=== PATIENT | male | born 1960 | race Caucasian/White ===

== ENCOUNTER → 2024-05-12 | Outpatient (CLI) | payer OTHER, SELFPAY ==
[2024-05-12 08:40] LABS: Basophils % (Auto) 1 % (0-2.5); Eosinophils # (Auto) 0.4 Thou/mm3 (0.0-0.5); Eosinophils % (Auto) 5 % (0-10); Hematocrit 42.5 % (41.0-53.0); Hemoglobin 14.8 g/dL (13.5-16.0); Immature Granulocytes % (Auto) 0 % (0-0); Immature Granulocytes Auto 0.02 Thou/mm3 (0.00-0.00); Lymphocytes # (Auto) 1.9 Thou/mm3 (1.0-4.8); Lymphocytes % (Auto) 27 % (10-50); Mean Corpuscular HGB Conc 34.8 g/dl (31.0-37.0); Mean Corpuscular Hemoglobin 31.1 pg (25.0-35.0); Mean Corpuscular Volume 89 fL (80-100); Monocytes # (Auto) 0.5 Thou/mm3 (0.0-0.8); Monocytes % (Auto) 8 % (0-12); Neutrophils # (Auto) 4.2 Thou/mm3 (1.8-7.7); Neutrophils % (Auto) 60 % (37-80); Nucleated Red Blood Cell % 0 /100 WBC (0); Platelet Count 187 Thou/mm3 (140-440); RDW Standard Deviation 39.8 fL (35.1-43.9); Red Blood Count 4.76 Miln/mm3 (4.50-5.90); White Blood Count 7.1 Thou/mm3 (3.8-10.6)
[2024-05-12 08:45] LABS: Glucose Estimated Average 275 mg/dL (80-131); Hemoglobin A1C 11.2 % Hgb (4.8-6.0)
[2024-05-12 09:02] LABS: Alanine Aminotransferase 22 U/L (10-49); Albumin, Serum 4.2 gm/dL (3.4-4.8); Albumin/Globulin Ratio 1.9 (1.2-2.2); Alkaline Phosphatase 102 U/L (46-116); Anion Gap 9 (7-16); Aspartate Amino Transferase 12 U/L (0-34); BUN/Creatinine Ratio 11 Ratio (12-20); Bilirubin,Total 0.8 mg/dL (0.3-1.2); Blood Urea Nitrogen 11 mg/dL (9-23); Calcium 9.1 mg/dL (8.3-10.6); Calcium (Corrected) 9.1 mg/dL (8.5-10.1); Carbon Dioxide 29.4 mMol/L (20.0-31.0); Cardiac Risk Estimate 2.9 RATIO (4.0-6.7); Chloride 99 mMol/L (98-107); Cholesterol 168 mg/dL (132-200); Globulin 2.2 gm/dL (2.3-3.5); Glucose 279 mg/dL (74-106); HDL Cholesterol 58 mg/dL (40-60); LDL Cholesterol,Calculated 88 mg/dL (0-130); Osmolality,Calculated 283 (275-295); Potassium 4.1 mMol/L (3.4-5.1); Sodium 137 mMol/L (136-145); Thyroid Stimulating Hormone 2.92 uIU/mL (0.55-4.78); Total Protein 6.4 gm/dL (5.7-8.2); Triglycerides 109 mg/dL (30-150); eGFR > 60 See Note
== END | disposition home or self-care (01) ==
LOC: COPL 07:13
PROVIDERS: PCP Internal Medicine; Referring Provider Nurse Practitioner Family; Visit Provider Nurse Practitioner Family
DX: E11.9 Type 2 diabetes mellitus without complications (principal); E78.2 Mixed hyperlipidemia; Z76.89 Persons encountering health services in other specified circumstances; Z79.4 Long term (current) use of insulin; Z79.899 Other long term (current) drug therapy; Z86.718 Personal history of other venous thrombosis and embolism
CPT/HCPCS: 36415; 80053; 80061; 83036; 84443; 85025

== ENCOUNTER 2024-10-19 13:01 | Emergency (ER) | payer OTHER, SELFPAY ==
[2024-10-19 13:01] VITALS: BMI 29.2
[2024-10-19 13:13] VITALS: BP 120/89; PULSE 89; RESP 18; TEMP 36.9; O2SAT 99
--- NOTE | 2024-10-19 13:17 | XR_ITS ---
Examination: CT brain head without contrast. 2-D sagittal coronal reconstructions Date and time of exam:October 19, 2024 1331 hours INDICATIONS: Onset generalized head pain and weakness today. CTDI: vol (mGy):59.6 DLP: (mGycm):1270 Technique: Multiple CT axial sections of the brain have been obtained, 5 mm slice thickness. Contrast has not been administered. 2-D sagittal, coronal reconstructions have been obtained Low dose protocols were performed. One or more of the following dose reduction techniques were used; automated exposure control, adjustment of the mA and/or KV according to patient size, use of iterative reconstruction technique. Findings: No significant ventricular enlargement. Intra-axial or extra-axial hemorrhage density is not seen. No mass effect or midline shift Basal cisterns are not remarkable. Fourth ventricle is midline. Cranial vault intact. Significant chronic ethmoid sinusitis Impression: Negative for acute hemorrhage, mass effect or midline shift
--- NOTE | 2024-10-19 13:17 | EKG_ITS ---
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
--- NOTE | 2024-10-19 13:17 | XR_ITS ---
Examination: PA lateral chest 2 views TECHNIQUE: Upright PA and lateral chest 2 views Date and time: October 19, 2024, 1346 hours. INDICATIONS: Chest pain today. FINDINGS: Normal heart size. Lungs are clear. The osseous structures are intact. IMPRESSION: No active disease.
--- NOTE | 2024-10-19 13:18 | PD.EDRME ---
Rapid Medical Screening Exam E Arrival date/time: 10/19/24 13:01 64-year-old male with a history of type 2 diabetes, DVT on Eliquis, presents to the emergency room with a chief complaint of chest tightness as well as upper back pain, the patient is also complaining of a 10 out of 10 headache. I have greeted and performed a focused initial assessment of this patient. A comprehensive ED assessment and evaluation of the patient, analysis of all test results, and completion of the medical decision making process will be conducted by additional ED providers. Chief Complaint: General Adult/Misc Complain Vital signs: Vital Signs Temperature 98.5 F 10/19/24 13:13 Pulse Rate 89 10/19/24 13:13 Respiratory Rate 18 10/19/24 13:13 Blood Pressure 120/89 H 10/19/24 13:13 Pulse Oximetry (%) 99 10/19/24 13:13 Oxygen Delivery Method Room Air 10/19/24 13:13 Vital signs reviewed by provider: Yes
[2024-10-19 15:09] LABS: Collection Type, Urine Clean Catch
[2024-10-19 15:19] LABS: Basophils # (Auto) 0.0 Thou/mm3 (0.0-0.2); Basophils % (Auto) 0 % (0-2.5); Eosinophils # (Auto) 0.1 Thou/mm3 (0.0-0.5); Eosinophils % (Auto) 1 % (0-10); Hematocrit 48.4 % (41.0-53.0); Hemoglobin 16.8 g/dL (13.5-16.0); Immature Granulocytes Auto 0.04 Thou/mm3 (0.00-0.00); Lymphocytes # (Auto) 1.8 Thou/mm3 (1.0-4.8); Lymphocytes % (Auto) 16 % (10-50); Mean Corpuscular HGB Conc 34.7 g/dl (31.0-37.0); Mean Corpuscular Hemoglobin 31.2 pg (25.0-35.0); Mean Corpuscular Volume 90 fL (80-100); Monocytes # (Auto) 0.9 Thou/mm3 (0.0-0.8); Monocytes % (Auto) 8 % (0-12); Neutrophils # (Auto) 8.3 Thou/mm3 (1.8-7.7); Neutrophils % (Auto) 74 % (37-80); Nucleated Red Blood Cell # 0.00 Thou/mm3 (0.00-0.00); Nucleated Red Blood Cell % 0 /100 WBC (0); Platelet Count 193 Thou/mm3 (140-440); RDW Standard Deviation 40.8 fL (35.1-43.9); Red Blood Count 5.39 Miln/mm3 (4.50-5.90); White Blood Count 11.2 Thou/mm3 (3.8-10.6)
[2024-10-19 15:26] LABS: INR 1.0 (0.9-1.3); Partial Thromboplastin Time 25.3 Seconds (22.0-36.0); Prothrombin Time 10.9 Seconds (9.0-12.2)
[2024-10-19 15:27] LABS: Bilirubin,Urine Negative (Negative); Blood,Urine Negative (Negative); Clarity,Urine Clear (Clear/Hazy); Color,Urine Lt-Yellow (Lt Yel-Yel); Culture Indicated,Urine Not Indicated; Glucose, Urine 4+ (Negative); Ketones,Urine 1+ (Negative); Leukocyte Esterase,Urine Negative (Negative); Nitrite,Urine Negative (Negative); PH,Urine 5.5 (5.0-7.0); Protein,Urine Negative (Neg - Trace); RBC,Urine 1 /hpf (0-3); Specific Gravity,Urine 1.044 (1.001-1.035); Squamous Epithelial Cell,Urine < 1 /hpf (0-5); Urobilinogen,Urine Negative mg/dL (0.0-1.0); WBC,Urine < 1 /hpf (0-5)
[2024-10-19 15:28] LABS: B-Type Natriuretic Peptide < 20 pg/mL (0-100)
[2024-10-19 15:29] LABS: Amphetamine/Methamp Scrn,U Negative (Negative); Barbiturate Screen,Urine Negative (Negative); Benzodiazepines Screen,Urine Negative (Negative); Benzoylecgonine Screen, Ur Negative (Negative); Fentanyl Screen,Urine Negative (Negative); Opiate Screen,Urine Negative (Negative); THC Screen,Urine Negative (Negative)
[2024-10-19 15:31] LABS: Alanine Aminotransferase 12 U/L (10-49); Albumin, Serum 4.7 gm/dL (3.4-4.8); Albumin/Globulin Ratio 1.7 (1.2-2.2); Alkaline Phosphatase 103 U/L (46-116); Anion Gap 11 (7-16); Aspartate Amino Transferase < 10 U/L (0-34); BUN/Creatinine Ratio 12 Ratio (12-20); Bilirubin,Total 0.6 mg/dL (0.3-1.2); Blood Urea Nitrogen 17 mg/dL (9-23); Calcium 10.6 mg/dL (8.3-10.6); Calcium (Corrected) 10.6 mg/dL (8.5-10.1); Carbon Dioxide 25.7 mMol/L (20.0-31.0); Chloride 99 mMol/L (98-107); Creatinine (Component) 1.4 mg/dL (0.6-1.3); Estimated Creatinine Clearance 71.1 mL/min (>60); Globulin 2.7 gm/dL (2.3-3.5); Glucose 217 mg/dL (74-106); Magnesium 2.1 mg/dL (1.6-2.6); Osmolality,Calculated 280 (275-295); Potassium 4.3 mMol/L (3.4-5.1); Sodium 136 mMol/L (136-145); Total Protein 7.4 gm/dL (5.7-8.2); Troponin I < 0.020 ng/mL (0.0-0.045); eGFR 56 See Note
--- NOTE | 2024-10-19 16:36 | EDNOTE_ITS ---
ED Headache RME/HPI General Chief Complaint: General Adult/Misc Complain Stated Complaint: GENERALIZED PAIN/DISCOMFORT, HEAD PRESSURE Arrival date/time: 10/19/24 13:01 Limitations: no limitations RME / HPI RME / HPI Narrative: 10/19/24 13:01 64-year-old male with a history of type 2 diabetes, DVT on Eliquis, presents to the emergency room with a chief complaint of chest tightness as well as upper back pain, the patient is also complaining of a 10 out of 10 headache. I have greeted and performed a focused initial assessment of this patient. A comprehensive ED assessment and evaluation of the patient, analysis of all test results, and completion of the medical decision making process will be conducted by additional ED providers. DR. JC WILLIAMSON ED EVALUATION 64 year old male with history of hypertension, diabetes, hyperlipidemia presents to the ED for evaluation of a diffuse headache beginning 2 days ago. Described headache as a dull ache he rates as moderate to severe that is not improved with taking Tylenol, DayQuil, or Gabapentin at home. Patient also complains of dizziness, upper back pain, and pain to bilateral lower extremities (from knees down), and an itching sensation to both armpits without visible rash or redness. Additionally reports feeling shaky that began yesterday. Denies fevers, chest pain, sore throat, nasal congestion, cough, shortness of breath, abdominal pain, n/v/d, or urinary symptoms. Denies any falls or injuries. Related Data Previous Rx's ?Medication ?Instructions ?Recorded peg 3350-electrolytes 236 240 ml PO Q10M PRN constipat ion 11/04/24 gram-22.74 gram-6.74 gram-5.86 #4,000 mL gram solution (GaviLyte-G) Allergies Allergy/AdvReac Type Severity Reaction Status Date / Time Penicillins Allergy Intermediate Rash Verified 11/04/24 13:21 Review of Systems Review of Systems Systems Reviewed: All systems reviewed, normal except as documented Past Medical History Social History SMOKING STATUS: Never smoker ED Exam General Limitations: Present no limitations General appearance: Present alert and in no apparent distress Head Head exam: Present atraumatic, normocephalic and normal inspection Eye Eye exam: Present normal appearance, PERRL and EOMI ENT ENT exam: Present normal exam, normal oropharynx and mucous membranes moist Neck Neck exam: Present normal inspection, full ROM and trachea midline Chest Chest inspection: Present normal inspection and symmetric chest wall rise Respiratory Respiratory exam: Present normal lung sounds bilaterally Cardiovascular Cardiovascular exam: Present regular rate, normal rhythm and normal heart sounds Abdominal Exam Abdominal exam: Present soft; Absent distention, tenderness, guarding, rebound or rigidity Extremities Exam Extremities exam: Present normal inspection and full ROM Back Exam Back exam: Present normal inspection and full ROM Neurological Exam Neurological exam: Present alert, oriented X3, CN II-XII intact and other (Patient able to walk, no focal neurological deficits ) Psychiatric Psychiatric exam: Present normal affect and normal mood Skin Skin exam: Present warm, dry, intact and normal color Course Quality Measures none Orders Category Date Time Status Bedside COVID-19 Antigen Test NOW Care 10/19/24 16:53 Completed Bedside Influenza A&B Antigen Test NOW Care 10/19/24 16:53 Completed EKG (ED ONLY) *Do not use* NOW Care 10/19/24 13:[address] head/brain wo con Stat Exams 10/19/24 13:17 Completed EKG (ED Only) Stat Exams 10/19/24 13:17 Draft XR chest 2V Stat Exams 10/19/24 13:17 Completed B-Type Natriuretic Peptide Stat Lab 10/19/24 14:55 Completed CBC Stat Lab 10/19/24 14:55 Completed Comprehensive Metabolic Panel Stat Lab 10/19/24 14:55 Completed Creatine Kinase Stat Lab 10/19/24 14:55 Completed Drug Screen,Urine Stat Lab 10/19/24 14:45 Completed Magnesium Stat Lab 10/19/24 14:55 Completed Partial Thromboplastin Time Stat Lab 10/19/24 14:55 Completed Prothrombin Time with INR Stat Lab 10/19/24 14:55 Completed Troponin I Stat Lab 10/19/24 14:55 Completed Urinalysis, C/S if Indicated Stat Lab 10/19/24 14:45 Completed DiphenhydrAMINE [Benadryl] Med 10/19/24 16:49 Discontinued 25 mg PO X1 ONE Ketorolac Inj [Toradol Inj] Med 10/19/24 16:49 Discontinued 15 mg IM X1 ONE Ketorolac Inj [Toradol Inj] Med 10/19/24 16:52 Discontinued 15 mg IM X1 ONE Metoclopramide [Reglan] Med 10/19/24 16:49 Discontinued 5 mg PO X1 ONE Ringers Lactated 1000 ml [Lactated Ringers] 1,000 ml Med 10/19/24 16:49 Discontinued IV 999 mls/hr Vital Signs Vital signs: Vital Signs Temperature 98.5 F 10/19/24 13:13 Pulse Rate 89 10/19/24 13:13 Respiratory Rate 18 10/19/24 13:13 Blood Pressure 120/89 H 10/19/24 13:13 Pulse Oximetry (%) 99 10/19/24 13:13 Oxygen Delivery Method Room Air 10/19/24 13:13 Pulse ox is 99% on room air which is adequate. Headache MDM Narrative MDM Narrative:: Labs with evidence that hemoglobin 16.8, no significant electrolyte abnormality creatinine 1.4, previously normal., no transaminitis, troponin not elevated, BNP normal, urinalysis with 4+ glucose, ketones negative leuk esterase, negative nitrates, no squames no bacteria less likely infected drug screen negative. Head CT and CXR w/o acute abnormalities. Exam w/o any FNDs, no rashes appreciated on exam less likely meningitis, encephalitis deep space occying infection. No rashes or LAD on exam. Patient w/o signs of SJS, TEN, or necrotizing skin infection. Patient does have DM, may be experiencing worsening neuropathy. Patient w/o weakness or ascending symptoms less likely GBS. Patient data External records reviewed:: None (No previous ED Visits for review ) Clinical information provided by:: patient Social determinants that could affect healthcare access:: none Patient has the following chronic illnesses:: HTN, DM, HLD How is presenting disease/condition affected by chronic disease/condition?: exacerbated by Evaluation data The following diagnostics were reviewed and interpreted by me:: lab results, radiology exam(s) and EKG tracing(s) Lab and/or radiology exams considered but not ordered:: None Interpretation Summary: Ordering Physician: Franky King Date of Service: 10/19/24 Procedure(s): XR chest 2V Accession Number(s): [id number] cc: Franky King; Immanuel Perry MD~ Examination: PA lateral chest 2 views TECHNIQUE: Upright PA and lateral chest 2 views Date and time: October 19, 2024, 1346 hours. INDICATIONS: Chest pain today. FINDINGS: Normal heart size. Lungs are clear. The osseous structures are intact. IMPRESSION: No active disease. Dictated By: Immanuel Perry MD Signed By: <Electronically signed by Immanuel Perry MD in OV> 10/19/24 1428 Ordering Physician: Franky King Date of Service: 10/19/24 Procedure(s): CT head/brain wo con Accession Number(s): [id number] cc: Franky King; Immanuel Perry MD~ Examination: CT brain head without contrast. 2-D sagittal coronal reconstructions Date and time of exam:October 19, 2024 1331 hours INDICATIONS: Onset generalized head pain and weakness today. CTDI: vol (mGy):59.6 DLP: (mGycm):1270 Technique: Multiple CT axial sections of the brain have been obtained, 5 mm slice thickness. Contrast has not been administered. 2-D sagittal, coronal reconstructions have been obtained Low dose protocols were performed. One or more of the following dose reduction techniques were used; automated exposure control, adjustment of the mA and/or KV according to patient size, use of iterative reconstruction technique. Findings: No significant ventricular enlargement. Intra-axial or extra-axial hemorrhage density is not seen. No mass effect or midline shift Basal cisterns are not remarkable. Fourth ventricle is midline. Cranial vault intact. Significant chronic ethmoid sinusitis Impression: Negative for acute hemorrhage, mass effect or midline shift Dictated By: Immanuel Perry MD Signed By: <Electronically signed by Immanuel Perry MD in OV> 10/19/24 1352 Medications / Prescriptions Medications or Prescriptions considered but not ordered:: None Medication administrations:: Medication Administration History Discontinued Medications Diphenhydramine HCl (Diphenhydramine 25 Mg Capsule) 25 mg PO X1 ONE Stop: 10/19/24 16:50 Last Admin: 10/19/24 17:00 Dose: 25 mg Documented By: DAYLIN Lactated Ringer's (Lactated Ringers) 1,000 mls @ 999 mls/hr IV .Q1H1M ONE Stop: 10/19/24 17:49 Last Infusion: 10/19/24 18:34 Dose: Infused Documented By: Admin: 10/19/24 17:54 Dose: 999 mls/hr Documented By: DAYLIN Ketorolac Tromethamine (Ketorolac Inj 60 Mg/2 Ml Vial) 15 mg IM X1 ONE Stop: 10/19/24 16:50 Last Admin: 10/19/24 17:55 Dose: Not Given Documented By: DAYLIN Non-Admin Reason: Duplicate Medication on eMAR Ketorolac Tromethamine (Ketorolac Inj 60 Mg/2 Ml Vial) 15 mg IM X1 ONE Stop: 10/19/24 16:53 Last Admin: 10/19/24 16:58 Dose: 15 mg Documented By: DAYLIN Metoclopramide HCl (Metoclopramide 5 Mg Tablet) 5 mg PO X1 ONE Stop: 10/19/24 16:50 Last Admin: 10/19/24 17:00 Dose: 5 mg Documented By: DAYLIN See above Consultations Consultation(s) initiated? (list below): No Diagnosis Differential diagnosis headache: migraine, subarachnoid hemorrhage, headache and other (dehydration, viral illness ) Most likely diagnosis given after review of the tests above:: Headache Admission Indicated Admission indicated?: not indicated Admission Request Was there a request for admission?: No Disposition Plan Disposition Plan: Discharge Discharge Attestation Discharge Attestation: The patient and all family members were given an opportunity to ask questions and understood the discharge instructions. Discharge instructions specifically effects, indications for sooner follow up or return to the emergency department, and the expected course of current diagnosis. Patient condition: Stable Discharge Plan Plan Patient Disposition: HOME (Self Care) Prescriptions/Referrals Prescriptions/Med Rec: No Action peg 3350-electrolytes [GaviLyte-G] 236-22.74-6.74 -5.86 gram recon soln 240 ml PO Q10M PRN (Reason: constipation) Qty: 4000 0RF Rx Instructions: until fecal effluent is clear Referrals: Sara Mckeon MD [Primary Care Provider] - In 1 week Problem List Clinical Impression: Headache Patient/Caregiver Discharge Instructions Additional Instructions: Although your workup today was reassuring I highly recommend that you follow-up with a neurologist to further discuss your headaches. If you have recurrence of symptoms or any other symptom of concern please return to the Emergency Department. Print Language: Armenian Stand Alone Forms: Katie Award Info., Patient Portal Info Letter
[2024-10-19] MEDS: KETOROLAC INJ 60 MG/2 ML VIAL 15 MG IM (16:58)
[2024-10-19] MEDS: METOCLOPRAMIDE 5 MG TABLET PO (17:00)
[2024-10-19 17:18] LABS: Creatine Kinase 84 U/L (34-171)
[2024-10-19] MEDS: RINGERS LACTATED 1000 ML 1,000 ML 999 ML IV (17:54)
== END 2024-10-19 18:45 | disposition home or self-care (01) ==
PROVIDERS: Nurse Practitioner Family; Emergency Provider Emergency Medicine; PCP Internal Medicine
DX: R51.9 Headache, unspecified (principal); R07.89 Other chest pain; E11.9 Type 2 diabetes mellitus without complications; M54.6 Pain in thoracic spine; E78.5 Hyperlipidemia, unspecified; I10 Essential (primary) hypertension
CPT/HCPCS: 36415; 70450; 71046; 80053; 80307; 81001; 82550; 83735; 83880; 84484; 85025; 85610; 85730; 87400; 87811; 93005; 96360; 96372; 99284; J1885; J7120; A9270

== ENCOUNTER 2024-11-04 13:18 | Emergency (ER) | payer OTHER, SELFPAY ==
[2024-11-04 13:29] VITALS: BP 127/80; PULSE 104; RESP 18; TEMP 36.9; O2SAT 98
--- NOTE | 2024-11-04 13:34 | EDNOTE_ITS ---
ED General RME/HPI General Chief complaint: General Adult/Misc Complain Stated complaint: UNABLE TO EMPTY BLADDER Time Seen by Provider: 11/04/24 13:33 Arrival date/time: 11/04/24 13:18 RME / HPI RME / HPI narrative: 64-year-old male patient with significant history of prostate problem in the past, came in for evaluation regarding acute urinary retention. Patient last good urination was last night. Now complaining of bladder discomfort, and distention. Also complained of constipation. Denies any dysuria or frequency. Last bowel movement yesterday. No vomiting no fever no other complaints noted Related Data Previous Rx's ?Medication ?Instructions ?Recorded peg 3350-electrolytes 236 240 ml PO Q10M PRN constipat ion 11/04/24 gram-22.74 gram-6.74 gram-5.86 #4,000 mL gram solution (GaviLyte-G) Allergies Allergy/AdvReac Type Severity Reaction Status Date / Time Penicillins Allergy Intermediate Rash Verified 11/04/24 13:21 Review of Systems Review of Systems Narrative Review of Systems: Review of system reviewed and within normal limits except mentioned in HPI ED Exam Narrative Physical exam: VITAL SIGNS: Reviewed. GENERAL APPEARANCE: Alert and interactive, follows commands, no acute distress, HEAD AND FACE: Non-traumatic. ENT: PERRL, pink conjunctivitis, eyelid no trauma, Mucous membrane moist. NECK: Supple, nontender, no nuchal rigidity. CHEST: No tenderness, no crepitus, no paradoxical movement, no retractions. LUNGS: Clear, well ventilated, symmetric, no rales, no wheezing, no ronchi, no stridor, good breath sounds bilaterally. HEART: Regular rate, regular rhythm, no murmur, no gallops. ABDOMEN: Soft, positive bowel sounds, nondistended, no guarding, nontender, no rebound, no masses, RECTAL: Deferred. GENITAL: Suprapubic distention, + tenderness NEUROLOGICAL: Gross motor function intact sensory function intact, Appropriate for age. MUSCULOSKELETAL: low back nontender, full range of motion. EXTREMITIES: Nontender, full range of motion. SKIN: Color pink, dry, no rash, no lacerations, no abrasions, no contusions. LYMPHATICS: Deferred. Course Quality Measures none Orders Category Date Time Status Stein [Urinary Catheter] Care 11/04/24 13:33 Active Stein to Parkin Routine Care 11/04/24 13:34 Ordered UA, C/S IF [Urinalysis, C/S if Indicated] Stat Lab 11/04/24 13:50 Completed Magnesium Citrate Liqd [Citrate of Magnesia Liqd] Med 11/04/24 13:33 Discontinued 300 ml PO X1 ONE Vital Signs Vital signs: Vital Signs Temperature 98.5 F 11/04/24 13:29 Pulse Rate 104 H 11/04/24 13:29 Respiratory Rate 18 11/04/24 13:29 Blood Pressure 127/80 11/04/24 13:29 Pulse Oximetry (%) 98 11/04/24 13:29 Oxygen Delivery Method Room Air 11/04/24 13:29 Discharge Plan Plan Patient Disposition: HOME (Self Care) Discharge Disposition comment: Stable Prescriptions/Referrals Prescriptions/Med Rec: New peg 3350-electrolytes [GaviLyte-G] 236-22.74-6.74 -5.86 gram recon soln 240 ml PO Q10M PRN (Reason: constipation) Qty: 4000 0RF Rx Instructions: until fecal effluent is clear Problem List Clinical Impression: Constipation, Acute urinary retention Patient/Caregiver Discharge Instructions Discharge Activity: activity as tolerated Education Materials: ED Constipation (Adult) Additional Instructions: Thank you for the opportunity for serving you today. You are stable for discharged . You are advised to: Follow-up with your PCP in 1 to 2 days Return to ED for worsening of symptoms Increase oral fluids Take medication as prescribed Print Language: Luxembourgish Stand Alone Forms: Katie Award Info., Patient Portal Info Letter DOUGLAS/YONI Supervising Physician DOUGLAS/YONI Supervising Physician: MD Dane [facility] Narrative [facility] hospital course: 64-year-old male patient with significant history of prostate problem in the past, came in for evaluation regarding acute urinary retention. Patient last good urination was last night. Now complaining of bladder discomfort, and distention. Also complained of constipation. Denies any dysuria or frequency. Last bowel movement yesterday. No vomiting no fever no other complaints noted Urinalysis no UTI. Patient was catheterized, was able to remove more than 1 L of clear urine. Patient verbalized significant improvement of symptoms. Patient was also given mag citrate with small bowel movement. Patient appears nontoxic and hemodynamically stable .Decision to discharge the patient. The patient/family was given an opportunity to ask questions and understood their discharge instructions. Discharge instructions specifically included follow up provider and time frame, current and/or new medications and possible side effects, indications for sooner follow up or return to the emergency department, and the expected course of current diagnosis. Patient reports feeling better as well and giving evidence of significant clinic al improvement, I believe patient is now a candidate for discharge. Medication Administration(s) Medication Administration History Discontinued Medications Magnesium Citrate (Magnesium Citrate 300 Ml Btl) 300 ml PO X1 ONE Stop: 11/04/24 13:34 Last Admin: 11/04/24 14:17 Dose: 300 ml Documented By: ROMAN
[2024-11-04 13:54] LABS: Collection Type, Urine Catheter; Squamous Epithelial Cell,Urine 0 /hpf (0-5)
[2024-11-04] MEDS: MAGNESIUM CITRATE 300 ML BTL PO (14:17)
[2024-11-04 14:27] LABS: Bilirubin,Urine Negative (Negative); Blood,Urine Trace (Negative); Clarity,Urine Clear (Clear/Hazy); Color,Urine Colorless (Lt Yel-Yel); Culture Indicated,Urine Not Indicated; Glucose, Urine 4+ (Negative); Ketones,Urine Negative (Negative); Leukocyte Esterase,Urine Negative (Negative); Nitrite,Urine Negative (Negative); PH,Urine 5.0 (5.0-7.0); Protein,Urine Negative (Neg - Trace); RBC,Urine 1 /hpf (0-3); Specific Gravity,Urine 1.032 (1.001-1.035); Urobilinogen,Urine Negative mg/dL (0.0-1.0); WBC,Urine 1 /hpf (0-5)
== END 2024-11-04 15:08 | disposition home or self-care (01) ==
LOC: SERX 14:57
PROVIDERS: Nurse Practitioner Family; Emergency Provider Emergency Medicine; PCP Internal Medicine
DX: R33.9 Retention of urine, unspecified (principal); K59.00 Constipation, unspecified
CPT/HCPCS: 51702; 81001; 99284; A4314; A9270